=== PATIENT | female | born 1950 | race Caucasian/White ===

== ENCOUNTER 2018-07-27 14:06 | Outpatient (REF) | payer MEDICARE, MEDICAID, SELFPAY ==
[2018-07-27 21:05] LABS: Abs Immature Grans 0.05 k/cumm (0.0-0.09); Absolute Basophil Count 0.01 k/cumm (0.0-0.2); Absolute Monocyte Count 0.47 k/cumm (0.11-0.7); Absolute Neutrophil Count 8.79 k/cumm (1.2-6.7); Basophils % 0.1; Eosinophils % 0.6; HCT 32.7 % (36.0-46.0); HGB 10.5 g/dL (12.0-15.5); Immature Grans % 0.5; Lymphocytes % 13.5; Mean Corp. HGB Concentration 32.1 g/dL (32.0-36.0); Mean Corpuscular Hemoglobin 29.7 pg (27.0-33.0); Mean Corpuscular Volume 92.6 fL (80-95); Mean Platelet Volume 9.2 fL (8.0-11.0); Monocytes % 4.3; Platelet Count 330 x1000/uL (130-400); RBC 3.53 m/cumm (4.00-5.20); RBC Distribution Width 16.2 % (11.7-14.6); White Blood Cell Count 10.85 k/cumm (4.4-10.8)
[2018-07-27 21:07] LABS: Absolute Eosinophil Count 0.07 k/cumm (0.0-0.7); Absolute Lymphocyte Count 1.46 k/cumm (1.2-3.4)
[2018-07-27 21:41] LABS: ESR 106 MM/HR (0-30)
[2018-07-27 21:52] LABS: ALT 58 U/L (12-78); AST 40 U/L (15-37); Albumin 3.2 g/dL (3.4-5.0); Alkaline Phosphatase 109 U/L (46-116); Anion Gap 11.2 mmol/L (3-11); BUN 16 mg/dL (7-18); Bilirubin, Total 0.5 mg/dL (0.2-1.0); CO2 27.8 mmol/L (21.0-32.0); CREATININE 1.67 mg/dL (0.55-1.02); Calcium 8.8 mg/dL (8.5-10.1); Chloride 93 mmol/L (98-107); Cholesterol 60 mg/dL (50-200); Glucose 283 mg/dL (70-100); HDL Cholesterol 22 mg/dL (40-60); LDL CHOLESTEROL 23 mg/dL (<100); Potassium 3.2 mmol/L (3.5-5.1); Sodium 132 mmol/L (136-145); TSH 1.14 uIU/mL (0.358-3.74); Total Protein 6.5 g/dL (6.4-8.2); Triglyceride 104 mg/dL (30-150)
[2018-07-27 22:04] LABS: C-Reactive Protein 13.15 mg/dL (0.0-0.3)
== END 2018-07-27 14:26 ==
LOC: NCHCN 14:06
PROVIDERS: PCP Nurse Practitioner Family; Visit Provider Nurse Practitioner Family
DX: E78.5 Hyperlipidemia, unspecified (principal); R53.83 Other fatigue
CPT/HCPCS: 80053; 80061; 83721; 85652; 84443; 85025; 86140

== ENCOUNTER 2018-08-02 15:59 | Outpatient (REF) | payer MEDICARE, MEDICAID, SELFPAY ==
[2018-08-02 21:52] LABS: Anion Gap 12.5 mmol/L (3-11); BUN 17 mg/dL (7-18); C-Reactive Protein 9.82 mg/dL (0.0-0.3); CO2 26.5 mmol/L (21.0-32.0); CREATININE 1.22 mg/dL (0.55-1.02); Calcium 8.8 mg/dL (8.5-10.1); Chloride 91 mmol/L (98-107); Estimated GFR 43.96 (mL/min/1.73m2); Glucose 187 mg/dL (70-100); Potassium 3.5 mmol/L (3.5-5.1); Sodium 130 mmol/L (136-145)
[2018-08-02 22:21] LABS: ESR 119 MM/HR (0-30)
== END 2018-08-02 16:19 ==
LOC: NCHCN 15:59
PROVIDERS: PCP Nurse Practitioner Family; Visit Provider Nurse Practitioner Family
DX: M06.9 Rheumatoid arthritis, unspecified (principal)
CPT/HCPCS: 80048; 85652; 86140

== ENCOUNTER 2018-10-05 11:33 | Outpatient (REF) | payer MEDICARE, MEDICAID, SELFPAY ==
[2018-10-05 22:12] LABS: Uric Acid 2.8 mg/dL (2.6-6.0)
== END 2018-10-05 11:53 ==
LOC: NCHCN 11:33
PROVIDERS: PCP Nurse Practitioner Family; Visit Provider Registered Nurse
DX: M79.672 Pain in left foot (principal)
CPT/HCPCS: 84550

== ENCOUNTER 2019-08-29 17:55 | Outpatient (REF) | payer MEDICARE, MEDICAID, SELFPAY ==
[2019-08-29 21:25] LABS: COMMENT (LAB VIEW ONLY) 40.47 mg/dL; Microalb ug/mg Crea 12.8 ug/mg Cr
== END 2019-08-29 18:15 ==
LOC: NCHCN 17:55
PROVIDERS: PCP Nurse Practitioner Family; Visit Provider Nurse Practitioner Family
DX: E11.9 Type 2 diabetes mellitus without complications (principal); K21.9 Gastro-esophageal reflux disease without esophagitis; F41.8 Other specified anxiety disorders
CPT/HCPCS: 82043; 82570

== ENCOUNTER 2020-08-07 13:00 | Outpatient (REF) | payer MEDICARE, MEDICAID, SELFPAY ==
[2020-08-07 21:31] LABS: Bacteria Many HPF (Negative); C & S Indicated? No/Sq. Contamination; Epithelial Cells Many HPF (Negative); WBC >50 HPF (0-5)
== END 2020-08-07 13:20 ==
LOC: NCHCN 13:00
PROVIDERS: PCP Nurse Practitioner Family; Visit Provider Nurse Practitioner Family
DX: R31.9 Hematuria, unspecified (principal); M54.5 Low back pain
CPT/HCPCS: 81015; 82043; 82570

== ENCOUNTER 2021-01-01 17:53 | Outpatient (REF) | payer MEDICARE, MEDICAID, SELFPAY ==
[2021-01-01 13:30] LABS: Abs Immature Grans 0.01 10^3/uL (0.0-0.06); Absolute Basophil Count 0.05 10^3/uL (0.0-0.2); Absolute Eosinophil Count 0.16 10^3/uL (0.0-0.7); Absolute Lymphocyte Count 1.78 10^3/uL (1.2-3.4); Absolute Monocyte Count 0.58 10^3/uL (0.1-0.8); Absolute Neutrophil Count 2.41 10^3/uL (1.2-6.7); Eosinophils % 3.2; HCT 33.9 % (36.0-46.0); HGB 9.8 g/dL (11.2-15.7); Immature Grans % 0.2; Lymphocytes % 35.7; MCH 26.1 pg (27.0-33.0); MCHC 28.9 % (32.0-36.0); MCV 90.2 fL (80-95); MPV 9.3 fL (8.0-11.0); Monocytes % 11.6; Neutrophils % 48.3; Nucleated RBC 0 %; Platelet Count 266 10^3/uL (130-400); RBC 3.76 10^6/uL (3.93-5.22); RDW 19.9 % (11.7-14.6); RDW-SD 65.3 fL; WBC 4.99 10^3/uL (4.4-10.8)
[2021-01-01 13:53] LABS: ALT 34 U/L (14-59); AST 23 U/L (15-37); Albumin 3.3 g/dL (3.4-5.0); Alkaline Phosphatase 72 U/L (46-116); Anion Gap 8.1 mmol/L (3-11); BUN 13 mg/dL (7-18); Bilirubin, Total 0.4 mg/dL (0.2-1.0); C-Reactive Protein 0.11 mg/dL (0.0-0.3); CO2 27.9 mmol/L (21.0-32.0); CREATININE 1.1 mg/dL (0.55-1.02); Chloride 108 mmol/L (98-107); Glucose 212 mg/dL (74-106); Potassium 4.3 mmol/L (3.5-5.1); Sodium 144 mmol/L (136-145); Total Protein 6.4 g/dL (6.4-8.2)
== END 2021-01-01 17:54 | disposition home or self-care (01) ==
LOC: NCHCN 17:53
PROVIDERS: PCP Nurse Practitioner Family; Visit Provider Nurse Practitioner Family
DX: M05.79 Rheumatoid arthritis with rheumatoid factor of multiple sites without organ or systems involvement (principal); Z79.899 Other long term (current) drug therapy
CPT/HCPCS: 80053; 85025; 86140

== ENCOUNTER 2021-04-09 13:11 | Outpatient (REF) | payer MEDICARE, MEDICAID, SELFPAY ==
[2021-04-09 22:10] LABS: HCT 33.3 % (36.0-46.0); HGB 9.7 g/dL (11.2-15.7); MCH 25.8 pg (27.0-33.0); MCHC 29.1 % (32.0-36.0); MCV 88.6 fL (80-95); MPV 9.8 fL (8.0-11.0); Platelet Count 222 10^3/uL (130-400); RBC 3.76 10^6/uL (3.93-5.22); RDW-SD 66.9 fL; WBC 5.68 10^3/uL (4.4-10.8)
[2021-04-09 22:46] LABS: ALT 21 U/L (14-59); AST 20 U/L (15-37); Albumin 3.3 g/dL (3.4-5.0); Alkaline Phosphatase 80 U/L (46-116); Anion Gap 10.6 mmol/L (3-11); BUN 17 mg/dL (7-18); Bilirubin, Total 0.4 mg/dL (0.2-1.0); CO2 25.4 mmol/L (21.0-32.0); Calcium 8.2 mg/dL (8.5-10.1); Chloride 107 mmol/L (98-107); Estimated GFR 54.81 (mL/min/1.73m2); Glucose 281 mg/dL (74-106); Potassium 4.1 mmol/L (3.5-5.1); Sodium 143 mmol/L (136-145); TSH 1.91 uIU/mL (0.36-3.74); Total Protein 6.3 g/dL (6.4-8.2)
[2021-04-09 22:51] LABS: Hemoglobin A1C 7.1 % (<5.7); INR 1.1 (0.9-1.1); Prothrombin Time 11.3 sec (9.3-11.0)
[2021-04-11 10:24] LABS: Hepatitis C Ab w Rflx HCV PCR Negative (Negative)
== END 2021-04-09 13:12 | disposition home or self-care (01) ==
LOC: NCHCN 13:11
PROVIDERS: PCP Nurse Practitioner Family; Visit Provider Nurse Practitioner Family
DX: Z11.59 Encounter for screening for other viral diseases; E11.22 Type 2 diabetes mellitus with diabetic chronic kidney disease; I12.9 Hypertensive chronic kidney disease with stage 1 through stage 4 chronic kidney disease, or unspecified chronic kidney disease; N18.30 Chronic kidney disease, stage 3 unspecified; D63.1 Anemia in chronic kidney disease; I25.10 Atherosclerotic heart disease of native coronary artery without angina pectoris; K21.9 Gastro-esophageal reflux disease without esophagitis
CPT/HCPCS: 80053; 85027; 86803; 83036; 83735; 84443; 85610

== ENCOUNTER 2021-06-03 13:45 | Outpatient (REF) | payer MEDICARE, MEDICAID, SELFPAY ==
[2021-06-03 14:54] LABS: Anion Gap 9.5 mmol/L (3-11); BUN 7 mg/dL (7-18); CO2 27.5 mmol/L (21.0-32.0); CREATININE 1.2 mg/dL (0.55-1.02); Calcium 8.3 mg/dL (8.5-10.1); Chloride 106 mmol/L (98-107); Estimated GFR 44.41 (mL/min/1.73m2); Glucose 170 mg/dL (74-106); Sodium 143 mmol/L (136-145)
== END 2021-06-03 13:46 | disposition home or self-care (01) ==
LOC: NCHCN 13:45
PROVIDERS: Visit Provider Nurse Practitioner Family
DX: I10 Essential (primary) hypertension (principal); I25.10 Atherosclerotic heart disease of native coronary artery without angina pectoris
CPT/HCPCS: 80048

== ENCOUNTER 2021-08-01 18:04 | Outpatient (REF) | payer MEDICARE, MEDICAID, SELFPAY ==
[2021-08-01 22:19] LABS: Abs Immature Grans 0.01 10^3/uL (0.0-0.06); HCT 32.2 % (36.0-46.0); HGB 9.3 g/dL (11.2-15.7); MCH 24.7 pg (27.0-33.0); MCHC 28.9 % (32.0-36.0); MCV 85.6 fL (80-95); MPV 9.7 fL (8.0-11.0); Nucleated RBC 0 %; Platelet Count 256 10^3/uL (130-400); RBC 3.76 10^6/uL (3.93-5.22); RDW 19.6 % (11.7-14.6); RDW-SD 60.7 fL; WBC 5.38 10^3/uL (4.4-10.8)
[2021-08-01 22:43] LABS: Absolute Lymphocyte Count 2.21 10^3/uL (1.2-3.4); Absolute Monocyte Count 0.27 10^3/uL (0.1-0.8); Absolute Neutrophil Count 2.91 10^3/uL (1.2-6.7); Atypical Lymphocytes % 6
[2021-08-01 22:44] LABS: Diff Comment Manual Differential; RBC Morphology Normal
[2021-08-02 06:41] LABS: Albumin 3.2 g/dL (3.4-5.0); Alkaline Phosphatase 86 U/L (46-116); BUN 12 mg/dL (7-18); Bilirubin, Total 0.3 mg/dL (0.2-1.0); Calcium 8.3 mg/dL (8.5-10.1); Estimated GFR 54.81 (mL/min/1.73m2); Glucose 158 mg/dL (74-106); Sodium 143 mmol/L (136-145); Total Protein 6.3 g/dL (6.4-8.2)
[2021-08-02 06:42] LABS: ALT 24 U/L (14-59); AST 22 U/L (15-37); Anion Gap 7.9 mmol/L (3-11); CO2 27.1 mmol/L (21.0-32.0); Chloride 108 mmol/L (98-107); Potassium 3.7 mmol/L (3.5-5.1)
== END 2021-08-01 18:05 | disposition home or self-care (01) ==
LOC: LBN 18:04
PROVIDERS: Visit Provider Nurse Practitioner Family
DX: Z79.899 Other long term (current) drug therapy (principal); M05.79 Rheumatoid arthritis with rheumatoid factor of multiple sites without organ or systems involvement
CPT/HCPCS: 80053; 85025; 86140

== ENCOUNTER 2021-08-12 14:49 | Outpatient (REF) | payer MEDICARE, MEDICAID, SELFPAY | END 2021-08-12 14:50 | disposition home or self-care (01) | LOC: NCHCN 14:49 | PROVIDERS: Visit Provider Nurse Practitioner Family | DX: N39.0 Urinary tract infection, site not specified (principal) | CPT/HCPCS: 87077; 87086; 87186 ==

== ENCOUNTER 2021-09-11 21:06 | Outpatient (REF) | payer MEDICARE, MEDICAID, SELFPAY | END 2021-09-11 21:07 | disposition home or self-care (01) | LOC: NCHCN 21:06 | PROVIDERS: Visit Provider Nurse Practitioner Family | DX: N39.0 Urinary tract infection, site not specified (principal) | CPT/HCPCS: 87077; 87086; 87186 ==

== ENCOUNTER 2021-10-30 14:31 | Outpatient (REF) | payer MEDICARE, MEDICAID, SELFPAY ==
[2021-10-30 14:51] LABS: C-Reactive Protein 5.08 mg/dL (0.0-0.3)
[2021-10-30 15:08] LABS: Abs Immature Grans 0.02 10^3/uL (0.0-0.06); Absolute Basophil Count 0.07 10^3/uL (0.0-0.2); Absolute Eosinophil Count 0.04 10^3/uL (0.0-0.7); Absolute Lymphocyte Count 2.16 10^3/uL (1.2-3.4); Absolute Monocyte Count 0.41 10^3/uL (0.1-0.8); Eosinophils % 0.6; HCT 32.6 % (36.0-46.0); HGB 9.2 g/dL (11.2-15.7); Immature Grans % 0.3; Lymphocytes % 31.8; MCH 24.3 pg (27.0-33.0); MCHC 28.2 % (32.0-36.0); MPV 9.6 fL (8.0-11.0); Neutrophils % 60.3; Nucleated RBC 0 %; Platelet Count 299 10^3/uL (130-400); RBC 3.79 10^6/uL (3.93-5.22); RDW 20.1 % (11.7-14.6); RDW-SD 62.1 fL
[2021-10-30 15:46] LABS: ALT 19 U/L (14-59); AST 24 U/L (15-37); Alkaline Phosphatase 88 U/L (46-116); Anion Gap 8.6 mmol/L (3-11); BUN 9 mg/dL (7-18); Bilirubin, Total 0.3 mg/dL (0.2-1.0); CO2 27.4 mmol/L (21.0-32.0); CREATININE 0.9 mg/dL (0.55-1.02); Calcium 8.4 mg/dL (8.5-10.1); Chloride 105 mmol/L (98-107); Glucose 122 mg/dL (74-106); Sodium 141 mmol/L (136-145); Total Protein 6.3 g/dL (6.4-8.2)
[2021-10-31 16:22] LABS: Ferritin 23 ng/mL (8-252); Vitamin B12 1522 pg/mL (193-986)
[2021-10-31 16:25] LABS: Iron 45 ug/dL (50-170); Total Iron Binding Capacity 350 ug/dL (250-450); Transferrin Sat 13 % (15-50)
[2021-10-31 22:43] LABS: Folate >24.0 ng/mL (See Note)
== END 2021-10-30 14:32 | disposition home or self-care (01) ==
LOC: NCHCN 14:31
PROVIDERS: Visit Provider Nurse Practitioner Family
DX: D64.9 Anemia, unspecified (principal); E11.9 Type 2 diabetes mellitus without complications; I10 Essential (primary) hypertension; N18.30 Chronic kidney disease, stage 3 unspecified; M05.79 Rheumatoid arthritis with rheumatoid factor of multiple sites without organ or systems involvement; Z79.899 Other long term (current) drug therapy
CPT/HCPCS: 80053; 82607; 82728; 82746; 83036; 83540; 83550; 85025; 86140

== ENCOUNTER 2021-11-11 15:16 | Outpatient (REF) | payer MEDICARE, MEDICAID, SELFPAY ==
[2021-11-11 21:29] LABS: HCT 31.9 % (36.0-46.0); HGB 9.1 g/dL (11.2-15.7); MCH 24.8 pg (27.0-33.0); MCHC 28.5 % (32.0-36.0); MCV 86.9 fL (80-95); MPV 9.5 fL (8.0-11.0); Platelet Count 281 10^3/uL (130-400); RBC 3.67 10^6/uL (3.93-5.22); RDW 20.5 % (11.7-14.6); RDW-SD 64.5 fL; WBC 6.06 10^3/uL (4.4-10.8)
[2021-11-11 21:37] LABS: BUN 10 mg/dL (7-18); Chloride 107 mmol/L (98-107); Estimated GFR 54.66 (mL/min/1.73m2); Glucose 223 mg/dL (74-106); Sodium 142 mmol/L (136-145)
[2021-11-11 22:24] LABS: Vitamin D 25 Total 7.6 ng/mL (30-100)
== END 2021-11-11 15:17 | disposition home or self-care (01) ==
LOC: NCHCN 15:16
PROVIDERS: Visit Provider Nurse Practitioner Family
DX: N18.30 Chronic kidney disease, stage 3 unspecified (principal); D64.9 Anemia, unspecified; E87.6 Hypokalemia
CPT/HCPCS: 80048; 82306; 85027; 85025

== ENCOUNTER 2022-02-03 22:02 | Outpatient (REF) | payer MEDICARE, MEDICAID, SELFPAY ==
[2022-02-03 21:41] LABS: HCT 37.9 % (36.0-46.0); HGB 11.4 g/dL (11.2-15.7); MCH 26.4 pg (27.0-33.0); MCHC 30.1 % (32.0-36.0); MCV 88 fL (80-95); MPV 9.7 fL (8.0-11.0); Platelet Count 227 10^3/uL (130-400); RBC 4.32 10^6/uL (3.93-5.22); RDW 18.7 % (11.7-14.6); RDW-SD 59.7 fL; WBC 6.77 10^3/uL (4.4-10.8)
[2022-02-03 21:56] LABS: Hemoglobin A1C 7.2 % (<5.7)
--- OUTSIDE RECORDS SUMMARY | 2022-02-03 22:07 | XMS_ITS | CCD ---
:1950 Author Care Team Providers Name Role Phone TENZIN MARK, SOL Hudson Attending Physician Unavailable Vital Signs Unknown or Not Available. Allergies Allergy Code Allergy Type Reaction Status CODEINE {Clinical monitoring unavailable} 0 Drug allergy UNKNOWN Active PCN (PENICILLIN) {Clinical monitoring 0 Drug allergy UNK NOWN Active unavailable} Procedures Unknown or Not Available. History of Immunizations Unknown or Not Available. Problems Unknown or Not Available. Results GLUCOSE FINGER/HEEL CAPILLARY - Collect Date/Time: 04/01/2021 13:10 Test Name Code Test Result Test Units Test Ref Range GLUCOSE CAP 103 mg/dL L=70 H=116 Active Medications Medication Code Dose Units Frequency Route Modification Start Date/Time Aspir Low 7008032 81 MILLIGRAMS TWICE A DAY ORAL 019 81MG Oral 13:27 Tablet, Enteric Coated Prescription Detail TAKE 81 MILLIGRAMS ORAL TWIC E A DAY Citalopram Hydrobromide [id number] 10 MILLIGRAMS DAILY ORAL 12/25/2018 13:27 10MG Oral Tablet Prescription Detail TAKE 10 MILLIGRAMS ORAL FESTUS Y Folic Acid 1MG Oral Tablet [id number] 2 MILLIGRAMS DAILY ORAL 12/25/2018 13:27 Prescription Detail TAKE 2 MILLIGRAMS ORAL DAILY Isosorbide Mononitrate 60MG [id number] 60 MILLIGRAMS DAILY ORAL 12/25/2018 13:27 Oral Tablet, Extended Release Prescription Detail TAKE 60 MILLIGRAMS ORAL FESTUS Y LEVEMIR FLEXPEN 0 100 UNIT TWICE A DAY SUBCUTANEOUS 12/25/2018 13:27 100U/1ML SUBCUTANEO Prescription Detail INJECT 100 UNIT SUBCUTANEOUS TWICE A DAY Lisinopril 10MG Oral Tablet 924165 10 MILLIGRAMS DAILY ORAL 12/25/2018 13:27 Prescription Detail TAKE 10 MILLIGRAMS ORAL FESTUS Y metFORMIN HCl 500MG [id number] 500 MILLIGRAMS TWICE A DAY ORAL 12/25/2018 13:27 Oral Tablet Prescription Detail TAKE 500 MILLIGRAMS ORAL TWI CE A DAY Metoprolol Succinate 50MG 815832 50 MILLIGRAMS DAILY ORAL 12/25/2018 13:27 Oral Tablet, Extended Release Prescription Detail TAKE 50 MILLIGRAMS ORAL FESTUS Y NOVOLOG 100U/1ML 0 10 UNIT THREE TIMES A SUBLINGUAL 12/25/2018 13:27 SUBCUTANEOUS SOLUT DAY Prescription Detail DISSOLVE 10 UNIT SUBLINGUAL THREE TIMES A DAY PLAQUENIL 200MG ORAL TABLET 0 200 MILLIGRAMS DAILY ORAL 12/25/2018 13:27 Prescription Detail TAKE 200 MILLIGRAMS ORAL ABBY LY Rosuvastatin Calcium 10MG 302939 10 MILLIGRAMS DAILY ORAL 12/25/2018 13:27 Oral Tablet Prescription Detail TAKE 10 MILLIGRAMS ORAL FESTUS Y Vitamin B12 1000MCG Oral 904025 000 MICROGRAM DAILY ORAL 12/25/2018 13:27 Tablet Prescription Detail TAKE 000 MICROGRAM ORAL FESTUS Y Medications Administered During Visit Unknown or Not Available. Encounters Encounter Diagnosis Diagnosis Code Start Date Diabetes mellitus [id number] 04/01/2021 Social History Smoking Status Code Start Date End Date Former smoker [id number] Patient Decision Aids Unknown or Not Available. Discharge Instructions You were admitted to [facility] on 04/01/2021 11:27 with a principal diagnosis of Diabetes You had the following tests done: GLUCO SE FINGER/HEEL CAPILLARY You were discharged from [facility] on 04/01/2021 11:27 Should you have any questions prior to d ischarge, please contact a member of your healthcare team. If [facility] left [facility] and have any questions, please contact your primary care physician. Chief Complaint and Reason For Visit Unknown or Not Available. Function Status Unknown or Not Available. Plan of Care Unknown or Not Available. Referral/Transition of Care Unknown or Not Available.
--- OUTSIDE RECORDS SUMMARY | 2022-02-03 22:07 | XMS_ITS | CCD ---
:1950 Author Care Team Providers Name Role Phone KAMINI UMANZOR Attending Physician Unavailable Vital Signs Unknown or Not Available. Allergies Allergy Code Allergy Type Reaction Status CODEINE {Clinical monitoring unavailable} 0 Drug allergy UNKNOWN Active PCN (PENICILLIN) {Clinical monitoring 0 Drug allergy UNK NOWN Active unavailable} Procedures Unknown or Not Available. History of Immunizations Unknown or Not Available. Problems Unknown or Not Available. Results Unknown or Not Available. Active Medications Medication Code Dose Units Frequency Route Modification Start Date/Time Aspir Low [id number] 81 MILLIGRAMS TWICE A DAY ORAL 019 81MG Oral 13:27 Tablet, Enteric Coated Prescription Detail TAKE 81 MILLIGRAMS ORAL TWIC E A DAY Citalopram Hydrobromide 405930 10 MILLIGRAMS DAILY ORAL 12/25/2018 13:27 10MG Oral Tablet Prescription Detail TAKE 10 MILLIGRAMS ORAL FESTUS Y Folic Acid 1MG Oral Tablet 697136 2 MILLIGRAMS DAILY ORAL 12/25/2018 13:27 Prescription Detail TAKE 2 MILLIGRAMS ORAL DAILY Isosorbide Mononitrate 60MG 961391 60 MILLIGRAMS DAILY ORAL 12/25/2018 13:27 Oral Tablet, Extended Release Prescription Detail TAKE 60 MILLIGRAMS ORAL FESTUS Y LEVEMIR FLEXPEN 0 100 UNIT TWICE A DAY SUBCUTANEOUS 12/25/2018 13:27 100U/1ML SUBCUTANEO Prescription Detail INJECT 100 UNIT SUBCUTANEOUS TWICE A DAY Lisinopril 10MG Oral Tablet 340898 10 MILLIGRAMS DAILY ORAL 12/25/2018 13:27 Prescription Detail TAKE 10 MILLIGRAMS ORAL FESTUS Y metFORMIN HCl 500MG 909001 500 MILLIGRAMS TWICE A DAY ORAL 12/25/2018 13:27 Oral Tablet Prescription Detail TAKE 500 MILLIGRAMS ORAL TWI CE A DAY Metoprolol Succinate 50MG 781377 50 MILLIGRAMS DAILY ORAL 12/25/2018 13:27 Oral [...] MILLIGRAMS ORAL ABBY LY Rosuvastatin Calcium 10MG 624969 10 MILLIGRAMS DAILY ORAL 12/25/2018 13:27 Oral Tablet Prescription Detail TAKE 10 MILLIGRAMS ORAL FESTUS Y Vitamin B12 1000MCG Oral 687864 000 MICROGRAM DAILY ORAL 12/25/2018 13:27 Tablet Prescription Detail TAKE 000 MICROGRAM ORAL FESTUS Y Medications Administered During Visit Unknown or Not Available. Encounters Encounter Diagnosis Diagnosis Code Start Date Urinary tract infectious disease [id number] Social History Smoking Status Code Start Date End Date Former smoker [id number] Patient Decision Aids Unknown or Not Available. Discharge Instructions You were admitted to [facility] on 09/17/2021 12:43 with a principal diagnosis of Urinary tract infection, site not spe cified You were discharged from [facility] on 09/17/2021 12:44 Should you have any questions prior to d ischarge, please contact a member of your healthcare team. If you have left the [facility] and have any questions, please contact your primary care physician. Chief Complaint and Reason For Visit Chief Complaint Date of Onset UTI CHRONIC KIDNEY DISEASE STAGE 3 Function Status Unknown or Not Available. Plan of Care Unknown or Not Available. Referral/Transition of Care Unknown or Not Available.
--- OUTSIDE RECORDS SUMMARY | 2022-02-03 22:07 | XMS_ITS | CCD ---
[...] Frequency Route Modification Start Date/Time Aspir Low [id number] 81 MILLIGRAMS TWICE A DAY ORAL 019 81MG Oral 13:27 Tablet, Enteric Coated Prescription Detail TAKE 81 MILLIGRAMS ORAL TWIC E A DAY Citalopram Hydrobromide 618922 10 MILLIGRAMS DAILY ORAL 12/25/2018 13:27 10MG Oral Tablet Prescription Detail TAKE 10 MILLIGRAMS ORAL FESTUS Y Folic Acid 1MG Oral Tablet [id number] 2 MILLIGRAMS DAILY ORAL 12/25/2018 13:27 Prescription Detail TAKE 2 MILLIGRAMS ORAL DAILY Isosorbide Mononitrate 60MG 743468 60 MILLIGRAMS DAILY ORAL 12/25/2018 13:27 Oral Tablet, Extended Release Prescription Detail TAKE 60 MILLIGRAMS ORAL FESTUS Y LEVEMIR FLEXPEN 0 100 UNIT TWICE A DAY SUBCUTANEOUS 12/25/2018 13:27 100U/1ML SUBCUTANEO Prescription Detail INJECT 100 UNIT SUBCUTANEOUS TWICE A DAY Lisinopril 10MG Oral Tablet 740518 10 MILLIGRAMS DAILY ORAL 12/25/2018 13:27 Prescription Detail TAKE 10 MILLIGRAMS ORAL FESTUS Y metFORMIN HCl 500MG 236718 500 MILLIGRAMS TWICE A DAY ORAL 12/25/2018 13:27 Oral Tablet Prescription Detail TAKE 500 MILLIGRAMS ORAL TWI CE A DAY Metoprolol Succinate 50MG 992698 50 MILLIGRAMS DAILY ORAL 12/25/2018 13:27 Oral [...] MILLIGRAMS ORAL ABBY LY Rosuvastatin Calcium 10MG 607761 10 MILLIGRAMS DAILY ORAL 12/25/2018 13:27 Oral Tablet Prescription Detail TAKE 10 MILLIGRAMS ORAL FESTUS Y Vitamin B12 1000MCG Oral 948902 000 MICROGRAM DAILY ORAL 12/25/2018 13:27 Tablet Prescription Detail TAKE 000 MICROGRAM ORAL FESTUS Y Medications Administered During Visit Unknown or Not Available. 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 [facility] and have any questions, please contact your primary care physician. Chief Complaint and Reason For Visit Unknown or Not Available. Function Status Unknown or Not Available. Plan of Care Unknown or Not Available. Referral/Transition of Care Unknown or Not Available.
[2022-02-03 22:12] LABS: Ferritin 56 ng/mL (8-252)
[2022-02-03 22:20] LABS: Vitamin D 25 Total 18.4 ng/mL (30-100)
== END 2022-02-03 22:03 | disposition home or self-care (01) ==
LOC: NCHCN 22:02
PROVIDERS: Visit Provider Nurse Practitioner Family
DX: E11.9 Type 2 diabetes mellitus without complications (principal); E55.9 Vitamin D deficiency, unspecified; D50.9 Iron deficiency anemia, unspecified; N18.30 Chronic kidney disease, stage 3 unspecified; I10 Essential (primary) hypertension
CPT/HCPCS: 80053; 82306; 85027; 82728; 83036

== ENCOUNTER 2022-02-10 16:55 | Outpatient (REF) | payer MEDICARE, MEDICAID, SELFPAY ==
[2022-02-10 21:32] LABS: Microalb ug/mg Crea 29.6 ug/mg Cr
[2022-02-10 21:37] LABS: ALT 26 U/L (14-59); AST 23 U/L (15-37); Albumin 3.2 g/dL (3.4-5.0); Alkaline Phosphatase 109 U/L (46-116); Anion Gap 8.2 mmol/L (3-11); BUN 12 mg/dL (7-18); Bilirubin, Total 0.3 mg/dL (0.2-1.0); C-Reactive Protein 0.82 mg/dL (0.0-0.3); CO2 27.8 mmol/L (21.0-32.0); CREATININE 1.2 mg/dL (0.55-1.02); Chloride 106 mmol/L (98-107); Estimated GFR 44.29 (mL/min/1.73m2); Glucose 144 mg/dL (74-106); Potassium 4.4 mmol/L (3.5-5.1); Sodium 142 mmol/L (136-145); Total Protein 6.5 g/dL (6.4-8.2)
== END 2022-02-10 16:56 | disposition home or self-care (01) ==
LOC: NCHCN 16:55
PROVIDERS: Nurse Practitioner Family; Visit Provider Nurse Practitioner Family
DX: M05.79 Rheumatoid arthritis with rheumatoid factor of multiple sites without organ or systems involvement (principal); E11.9 Type 2 diabetes mellitus without complications
CPT/HCPCS: 80053; 82043; 82570; 86140

== ENCOUNTER 2022-05-07 13:42 | Outpatient (REF) | payer MEDICARE, MEDICAID, SELFPAY ==
[2022-05-07 21:46] LABS: HCT 37.9 % (36.0-46.0); HGB 11.7 g/dL (11.2-15.7); MCHC 30.9 % (32.0-36.0); MCV 91 fL (80-95); MPV 9.7 fL (8.0-11.0); Platelet Count 244 10^3/uL (130-400); RBC 4.18 10^6/uL (3.93-5.22); RDW-SD 59.3 fL; WBC 3.96 10^3/uL (4.4-10.8)
[2022-05-07 22:00] LABS: Hemoglobin A1C 7.5 % (<5.7)
[2022-05-08 05:14] LABS: Vitamin D 25 Total 55.2 ng/mL (30-100)
== END 2022-05-07 13:43 | disposition home or self-care (01) ==
LOC: NCHCN 13:42
PROVIDERS: Visit Provider Nurse Practitioner Family
DX: E11.9 Type 2 diabetes mellitus without complications (principal); E55.9 Vitamin D deficiency, unspecified; D63.8 Anemia in other chronic diseases classified elsewhere
CPT/HCPCS: 82306; 85027; 83036

== ENCOUNTER 2022-08-11 16:15 | Outpatient (REF) | payer MEDICARE, MEDICAID, SELFPAY ==
[2022-08-11 21:39] LABS: Abs Immature Grans 0.01 10^3/uL (0.0-0.06); Absolute Basophil Count 0.05 10^3/uL (0.0-0.2); Absolute Lymphocyte Count 2.93 10^3/uL (1.2-3.4); Absolute Monocyte Count 0.57 10^3/uL (0.1-0.8); Absolute Neutrophil Count 2.19 10^3/uL (1.2-6.7); Basophils % 0.9; Eosinophils % 1.7; HCT 36.1 % (36.0-46.0); HGB 10.9 g/dL (11.2-15.7); Immature Grans % 0.2; Lymphocytes % 50.1; MCH 27.2 pg (27.0-33.0); MCHC 30.2 % (32.0-36.0); MCV 90 fL (80-95); MPV 9.9 fL (8.0-11.0); Monocytes % 9.7; Neutrophils % 37.4; Platelet Count 217 10^3/uL (130-400); RBC 4.01 10^6/uL (3.93-5.22); RDW 17.7 % (11.7-14.6); RDW-SD 57.4 fL; WBC 5.85 10^3/uL (4.4-10.8)
[2022-08-11 22:38] LABS: ALT 24 U/L (14-59); AST 21 U/L (15-37); Albumin 3.5 g/dL (3.4-5.0); Alkaline Phosphatase 90 U/L (46-116); Anion Gap 9.7 mmol/L (3-11); BUN 15 mg/dL (7-18); Bilirubin, Total 0.4 mg/dL (0.2-1.0); CO2 28.3 mmol/L (21.0-32.0); CREATININE 1.2 mg/dL (0.55-1.02); Calcium 9.1 mg/dL (8.5-10.1); Chloride 102 mmol/L (98-107); Estimated GFR 48.39 (mL/min/1.73m2); Glucose 161 mg/dL (74-106); Potassium 3.7 mmol/L (3.5-5.1); Sodium 140 mmol/L (136-145); Total Protein 7.4 g/dL (6.4-8.2)
[2022-08-11 22:41] LABS: Hemoglobin A1C 8.3 % (<5.7)
== END 2022-08-11 16:16 | disposition home or self-care (01) ==
LOC: NCHCN 16:15
PROVIDERS: Nurse Practitioner Family; PCP Nurse Practitioner Family; Visit Provider Nurse Practitioner Family
DX: E11.9 Type 2 diabetes mellitus without complications (principal); M05.79 Rheumatoid arthritis with rheumatoid factor of multiple sites without organ or systems involvement
CPT/HCPCS: 80053; 83036; 85025; 86140

== ENCOUNTER 2022-09-24 17:46 | Outpatient (REF) | payer MEDICARE, MEDICAID, SELFPAY ==
[2022-09-24 21:25] LABS: HCT 39.2 % (36.0-46.0); HGB 11.7 g/dL (11.2-15.7); MCH 27.5 pg (27.0-33.0); MCHC 29.8 % (32.0-36.0); MCV 92 fL (80-95); MPV 10.5 fL (8.0-11.0); Platelet Count 202 10^3/uL (130-400); RBC 4.26 10^6/uL (3.93-5.22); RDW 18.6 % (11.7-14.6); RDW-SD 61.6 fL; WBC 7.77 10^3/uL (4.4-10.8)
[2022-09-24 21:45] LABS: ALT 37 U/L (14-59); AST 43 U/L (15-37); Albumin 3.8 g/dL (3.4-5.0); Alkaline Phosphatase 99 U/L (46-116); Anion Gap 8.8 mmol/L (3-11); BUN 13 mg/dL (7-18); Bilirubin, Total 0.3 mg/dL (0.2-1.0); CO2 28.2 mmol/L (21.0-32.0); CREATININE 1.1 mg/dL (0.55-1.02); Calcium 8.9 mg/dL (8.5-10.1); Chloride 106 mmol/L (98-107); Estimated GFR 53.72 (mL/min/1.73m2); Glucose 152 mg/dL (74-106); Lipase 167 U/L (73-393); Potassium 3.7 mmol/L (3.5-5.1); Sodium 143 mmol/L (136-145); Total Protein 7.4 g/dL (6.4-8.2)
== END 2022-09-24 17:47 | disposition home or self-care (01) ==
LOC: NCHCN 17:46
PROVIDERS: PCP Nurse Practitioner Family; Visit Provider Family Medicine
DX: I25.10 Atherosclerotic heart disease of native coronary artery without angina pectoris (principal); D63.8 Anemia in other chronic diseases classified elsewhere; N39.0 Urinary tract infection, site not specified; E11.9 Type 2 diabetes mellitus without complications; I10 Essential (primary) hypertension
CPT/HCPCS: 80053; 83690; 85027; 87077; 87086; 87186

== ENCOUNTER 2022-12-25 14:51 | Outpatient (REF) | payer MEDICARE, MEDICAID, SELFPAY ==
[2022-12-25 21:07] LABS: Abs Immature Grans 0.01 10^3/uL (0.0-0.06); Absolute Basophil Count 0.05 10^3/uL (0.0-0.2); Absolute Eosinophil Count 0.24 10^3/uL (0.0-0.7); Absolute Monocyte Count 0.26 10^3/uL (0.1-0.8); Absolute Neutrophil Count 4.72 10^3/uL (1.2-6.7); Basophils % 0.7; Eosinophils % 3.3; HCT 36.8 % (36.0-46.0); HGB 11.2 g/dL (11.2-15.7); Immature Grans % 0.1; Lymphocytes % 28.5; MCH 28.1 pg (27.0-33.0); MCHC 30.4 % (32.0-36.0); MCV 93 fL (80-95); MPV 10.1 fL (8.0-11.0); Monocytes % 3.5; Neutrophils % 63.9; Platelet Count 242 10^3/uL (130-400); RBC 3.98 10^6/uL (3.93-5.22); RDW 18.6 % (11.7-14.6); RDW-SD 62.5 fL; WBC 7.38 10^3/uL (4.4-10.8)
[2022-12-25 21:27] LABS: ALT 25 U/L (14-59); AST 31 U/L (15-37); Albumin 3.2 g/dL (3.4-5.0); Alkaline Phosphatase 85 U/L (46-116); BUN 18 mg/dL (7-18); Bilirubin, Total 0.3 mg/dL (0.2-1.0); CREATININE 1.5 mg/dL (0.55-1.02); Calcium 9.1 mg/dL (8.5-10.1); Chloride 101 mmol/L (98-107); Glucose 307 mg/dL (74-106); Potassium 4.2 mmol/L (3.5-5.1); Sodium 134 mmol/L (136-145); Total Protein 7.2 g/dL (6.4-8.2)
== END 2022-12-25 14:52 | disposition home or self-care (01) ==
LOC: LBN 14:51
PROVIDERS: PCP Nurse Practitioner Family; Visit Provider Nurse Practitioner Family
DX: M05.79 Rheumatoid arthritis with rheumatoid factor of multiple sites without organ or systems involvement (principal); Z79.899 Other long term (current) drug therapy
CPT/HCPCS: 80053; 85025; 86140

== ENCOUNTER 2023-04-01 13:57 | Outpatient (REF) | payer MEDICARE, MEDICAID, SELFPAY | END 2023-04-01 13:58 | disposition home or self-care (01) | LOC: NCHCN 13:57 | PROVIDERS: PCP Nurse Practitioner Family; Visit Provider Nurse Practitioner Family | DX: N93.9 Abnormal uterine and vaginal bleeding, unspecified (principal) | CPT/HCPCS: 87086 ==

== ENCOUNTER 2023-06-01 10:29 | Outpatient (REF) | payer MEDICARE, MEDICAID, SELFPAY ==
[2023-06-01 14:40] LABS: Abs Immature Grans 0.01 10^3/uL (0.0-0.06); Absolute Basophil Count 0.04 10^3/uL (0.0-0.2); Absolute Eosinophil Count 0.07 10^3/uL (0.0-0.7); Absolute Lymphocyte Count 2.02 10^3/uL (1.2-3.4); Absolute Monocyte Count 0.84 10^3/uL (0.1-0.8); Absolute Neutrophil Count 2.98 10^3/uL (1.2-6.7); Basophils % 0.7; Eosinophils % 1.2; HCT 37.6 % (36.0-46.0); HGB 11.8 g/dL (11.2-15.7); Immature Grans % 0.2; Lymphocytes % 33.9; MCH 30.3 pg (27.0-33.0); MCHC 31.4 % (32.0-36.0); MCV 97 fL (80-95); MPV 9.6 fL (8.0-11.0); Monocytes % 14.1; Neutrophils % 49.9; Platelet Count 207 10^3/uL (130-400); RBC 3.89 10^6/uL (3.93-5.22); RDW 17.2 % (11.7-14.6); RDW-SD 60.3 fL; WBC 5.96 10^3/uL (4.4-10.8)
[2023-06-01 15:06] LABS: ALT 26 U/L (14-59); AST 24 U/L (15-37); Albumin 3.3 g/dL (3.4-5.0); Alkaline Phosphatase 82 U/L (46-116); Anion Gap 9.2 mmol/L (3-11); BUN 15 mg/dL (7-18); Bilirubin, Total 0.4 mg/dL (0.2-1.0); CO2 25.8 mmol/L (21.0-32.0); CREATININE 1.4 mg/dL (0.55-1.02); Calculated LDL 18 mg/dL (<100); Chloride 104 mmol/L (98-107); Cholesterol 79 mg/dL (<200); Estimated GFR 39.97 (mL/min/1.73m2); Glucose 199 mg/dL (74-106); HDL Cholesterol 33 mg/dL (40-60); Potassium 4.2 mmol/L (3.5-5.1); Sodium 139 mmol/L (136-145); Total Protein 7.1 g/dL (6.4-8.2); Triglyceride 142 mg/dL (<150)
[2023-06-01 15:58] LABS: C-Reactive Protein 0.28 mg/dL (0.0-0.3)
== END 2023-06-01 10:30 | disposition home or self-care (01) ==
LOC: LBN 10:29
PROVIDERS: PCP Nurse Practitioner Family; Visit Provider Nurse Practitioner Family
DX: M05.79 Rheumatoid arthritis with rheumatoid factor of multiple sites without organ or systems involvement (principal); Z79.899 Other long term (current) drug therapy; E78.5 Hyperlipidemia, unspecified; R79.89 Other specified abnormal findings of blood chemistry
CPT/HCPCS: 80053; 80061; 85025; 86140

== ENCOUNTER 2023-10-05 15:39 | Outpatient (REF) | payer MEDICARE, MEDICAID, SELFPAY ==
[2023-10-05 21:40] LABS: COMMENT (LAB VIEW ONLY) 44.59 mg/dL; Microalb ug/mg Crea 24.2 ug/mg Cr
== END 2023-10-05 15:40 | disposition home or self-care (01) ==
LOC: NCHCN 15:39
PROVIDERS: PCP Nurse Practitioner Family; Visit Provider Nurse Practitioner Family
DX: E11.9 Type 2 diabetes mellitus without complications (principal)
CPT/HCPCS: 82043; 82570

== ENCOUNTER 2023-12-03 17:22 | Outpatient (REF) | payer MEDICARE, MEDICAID, SELFPAY ==
[2023-12-03 21:19] LABS: Abs Immature Grans 0.01 10^3/uL (0.0-0.06); Absolute Basophil Count 0.04 10^3/uL (0.0-0.2); Absolute Eosinophil Count 0.07 10^3/uL (0.0-0.7); Absolute Lymphocyte Count 2.12 10^3/uL (1.2-3.4); Absolute Monocyte Count 0.29 10^3/uL (0.1-0.8); Absolute Neutrophil Count 2.61 10^3/uL (1.2-6.7); Basophils % 0.8; Eosinophils % 1.4; HCT 39.6 % (36.0-46.0); HGB 12.3 g/dL (11.2-15.7); Immature Grans % 0.2; Lymphocytes % 41.2; MCH 30.4 pg (27.0-33.0); MCHC 31.1 % (32.0-36.0); MCV 98 fL (80-95); Monocytes % 5.6; Neutrophils % 50.8; Platelet Count 167 10^3/uL (130-400); RBC 4.05 10^6/uL (3.93-5.22); RDW 16.5 % (11.7-14.6); RDW-SD 59.8 fL; WBC 5.14 10^3/uL (4.4-10.8)
[2023-12-03 21:31] LABS: ALT 37 U/L (14-59); AST 35 U/L (15-37); Albumin 3.5 g/dL (3.4-5.0); Alkaline Phosphatase 80 U/L (46-116); Anion Gap 10.5 mmol/L (3-11); BUN 19 mg/dL (7-18); Bilirubin, Total 0.3 mg/dL (0.2-1.0); CO2 27.5 mmol/L (21.0-32.0); CREATININE 1.2 mg/dL (0.55-1.02); Calcium 9.3 mg/dL (8.5-10.1); Chloride 103 mmol/L (98-107); Glucose 317 mg/dL (74-106); Potassium 4.3 mmol/L (3.5-5.1); Sodium 141 mmol/L (136-145); Total Protein 7.4 g/dL (6.4-8.2)
[2023-12-03 21:32] LABS: C-Reactive Protein < 0.50 mg/dL (<or=0.5)
== END 2023-12-03 17:23 | disposition home or self-care (01) ==
LOC: LBN 17:22
PROVIDERS: PCP Nurse Practitioner Family; Visit Provider Nurse Practitioner Family
DX: M05.79 Rheumatoid arthritis with rheumatoid factor of multiple sites without organ or systems involvement (principal); Z79.899 Other long term (current) drug therapy
CPT/HCPCS: 80053; 85025; 86140

== ENCOUNTER 2024-02-04 14:51 | Outpatient (REF) | payer MEDICARE, MEDICAID, SELFPAY ==
[2024-02-04 21:34] LABS: HCT 42.1 % (36.0-46.0); HGB 13.4 g/dL (11.2-15.7); MCH 31.3 pg (27.0-33.0); MCHC 31.8 % (32.0-36.0); MCV 98 fL (80-95); MPV 10.2 fL (8.0-11.0); Platelet Count 185 10^3/uL (130-400); RBC 4.28 10^6/uL (3.93-5.22); RDW 17.5 % (11.7-14.6); RDW-SD 62.5 fL; WBC 6.82 10^3/uL (4.4-10.8)
[2024-02-04 21:47] LABS: ALT 65 U/L (14-59); AST 67 U/L (15-37); Albumin 3.8 g/dL (3.4-5.0); Alkaline Phosphatase 81 U/L (46-116); Anion Gap 11.6 mmol/L (3-11); BUN 18 mg/dL (7-18); Bilirubin, Total 0.5 mg/dL (0.2-1.0); CO2 23.4 mmol/L (21.0-32.0); CREATININE 1.4 mg/dL (0.55-1.02); Calcium 9.4 mg/dL (8.5-10.1); Chloride 103 mmol/L (98-107); Estimated GFR 39.73 (mL/min/1.73m2); Glucose 183 mg/dL (74-106); Potassium 4.6 mmol/L (3.5-5.1); Sodium 138 mmol/L (136-145); Total Protein 7.5 g/dL (6.4-8.2)
[2024-02-04 22:09] LABS: Hemoglobin A1C 7.7 % (<5.7)
== END 2024-02-04 14:52 | disposition home or self-care (01) ==
LOC: NCHCN 14:51
PROVIDERS: PCP Nurse Practitioner Family; Visit Provider Nurse Practitioner Family
DX: D63.8 Anemia in other chronic diseases classified elsewhere (principal); N18.30 Chronic kidney disease, stage 3 unspecified; E11.9 Type 2 diabetes mellitus without complications
CPT/HCPCS: 80053; 85027; 83036